=== PATIENT | male | born 2005 | race Caucasian/White ===

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

== ENCOUNTER 2025-08-20 15:51 | Emergency (ER) | payer OTHER, SELFPAY ==
[2025-08-20 16:01] VITALS: BP 123/61; PULSE 105; RESP 16; TEMP 37.9; O2SAT 97
[2025-08-20] MEDS: ONDANSETRON 4 MG ODT SL (16:23)
[2025-08-20] MEDS: ACETAMINOPHEN 325 MG TABLET 975 MG PO (16:23)
[2025-08-20] MEDS: NEOMY/POLYM B/HC OTIC 10 ML 4 DROPS EAR-LEFT (16:25)
[2025-08-20] MEDS: AMOXICILLIN/CLAV 875/125 MG 1 TAB PO (16:25)
[2025-08-20 16:38] VITALS: BMI 31.5
[2025-08-20 16:39] VITALS: BP 128/67; PULSE 96; RESP 18; TEMP 37.3; O2SAT 97
--- NOTE | 2025-08-20 16:47 | ED.EAR ---
HPI - Ear Problem <MT Lassiter Last Filed: 08/20/25 18:29> General Chief complaint: Ear Stated complaint: Severe LT ear pain; jaw pain Time Seen by Provider: 08/20/25 16:02 Source: patient Mode of arrival: Ambulatory History of Present Illness HPI Narrative: Mr. Beatriz Swanson is a pleasant 20-year-old male with no reported past medical history who presents to the emergency department with his family for left ear pain and jaw pain x3 days. Patient says he has pain primarily in the left ear but it is also spreading to the left jaw. He previously did not have any fevers or chills but in the emergency department as temperature is slightly elevated 100.2. He denies significant cough, sore throat, right ear pain or sinus congestion. He has mild nausea, no vomiting or diarrhea. Denies recent swimming but he does submerge his head under water in the shower. No reported history of ear infections. Related Data Previous Rx's ?Medication ?Instructions ?Recorded hydrocortisone 2.5 % topical 1 applic topical BID PRN itching 11/11/20 ointment #28.35 grams albuterol sulfate 90 mcg/actuation 2 puff inhalation Q6H PRN 09/04/24 aerosol inhaler shortness of breath or wheezing #8.5 grams azithromycin 500 mg tablet See Rx Instructions PO .COMPLEX #3 09/04/24 (Zithromax TRI-ANTONIA) tabs amoxicillin 875 mg-potassium 1 tab PO Q12H 7 days #14 tabs 08/20/25 clavulanate 125 mg tablet [id number] 3.5 4 drp EAR-LEFT QID 10 days #10 mL 08/20/25 mg-10,000 unit/mL-1 % ear drops,susp ondansetron 4 mg disintegrating 4 mg PO Q8H PRN nausea and 08/20/25 tablet vomiting #10 tabs Allergies Allergy/AdvReac Type Severity Reaction Status Date / Time No Known Drug Allergies Allergy Verified 08/20/25 16:01 Review of Systems <Triny Coon PA-C - Last Filed: 08/20/25 18:29> Review of Systems ROS Unobtainable: All systems reviewed & are unremarkable except as noted in HPI and below Patient History <Triny Coon PA-C - Last Filed: 08/20/25 18:29> Medical History Chronic pruritus Keratosis pilaris Social History Smoking Status: Never smoker Smoking Status: Never smoker Exam <Triny Coon PA-C - Last Filed: 08/20/25 18:29> Narrative Exam Narrative: GENERAL: 20 year old patient appears stated age. Well-developed patient, in no acute distress. HEAD: Atraumatic. Normocephalic. EYES: PERRL. Extraocular motions intact. No scleral icterus. No injection or drainage. ENT: Left ear canal erythematous and edematous, TM is also erythematous and bulging without perforation. Right ear canal is clear with pearly dewitt TM. No mastoid tenderness or erythema bilaterally. Nose without bleeding, purulent drainage. Throat without erythema, tonsillar hypertrophy or exudate, uvula is midline. [place] teeth do appear to be coming in on both sides of the lower jaw, no fluctuance, dental tenderness or drainage. No oropharyngeal swelling. Airway patent. NECK: Trachea midline. Cervical ROM intact. Mild left-sided cervical lymphadenopathy palpable. CARDIOVASCULAR: Regular rate and rhythm. RESPIRATORY: ?Nonlabored respirations. ?Speaking in clear, full sentences. ?Clear to auscultation. Breath sounds equal bilaterally. No wheezes, rales, or rhonchi. ? NEURO: AOx3. ?Clear speech. ?Moves all 4 extremities appropriately. SKIN: No rash or erythema of visible areas. Initial Vital Signs Initial Vital Signs: Vital Signs Temperature 100.2 F H 08/20/25 16:01 Pulse Rate 105 H 08/20/25 16:01 Respiratory Rate 16 08/20/25 16:01 Blood Pressure 123/61 08/20/25 16:01 Pulse Oximetry 97 08/20/25 16:01 Oxygen Delivery Method Room Air 08/20/25 16:01 <Marlena Haywood MD - Last Filed: 08/20/25 19:10> Initial Vital Signs Initial Vital Signs: Vital Signs Temperature 100.2 F H 08/20/25 16:01 Pulse Rate 105 H 08/20/25 16:01 Respiratory Rate 16 08/20/25 16:01 Blood Pressure 123/61 08/20/25 16:01 Pulse Oximetry 97 08/20/25 16:01 Oxygen Delivery Method Room Air 08/20/25 16:01 Course <Triny Coon PA-C - Last Filed: 08/20/25 18:29> Orders Ordered: Discontinued Medications Acetaminophen (Acetaminophen 325 Mg Tablet) 975 mg PO NOW ONE Stop: 08/20/25 16:09 Last Admin: 08/20/25 16:23 Dose: 975 mg Documented By: JULIA Amoxicillin/Clavulanate Potassium (Amoxicillin/Clav 875/125 Mg) 1 tab PO NOW ONE Stop: 08/20/25 16:09 Last Admin: 08/20/25 16:25 Dose: 1 tab Documented By: JULIA Neomycin/Polymyxin/Hydrocortisone (Neomy/Polym B/Hc Otic 10 Ml) 4 drops EAR-LEFT NOW ONE Stop: 08/20/25 16:14 Last Admin: 08/20/25 16:25 Dose: 4 drops Documented By: JULIA Ondansetron HCl (Ondansetron 4 Mg Odt) 4 mg SL NOW ONE Stop: 08/20/25 16:09 Last Admin: 08/20/25 16:23 Dose: 4 mg Documented By: JULIA Vital Signs Vital signs: Vital Signs - 8 hr 08/20/25 16:01 08/20/25 16:39 Temperature 100.2 F H 99.2 F Pulse Rate 105 H 96 H Respiratory Rate 16 18 Blood Pressure 123/61 128/67 Pulse Oximetry 97 97 Oxygen Delivery Method Room Air <Marlena Haywood MD - Last Filed: 08/20/25 19:10> Orders Ordered: Discontinued Medications Acetaminophen (Acetaminophen 325 Mg Tablet) 975 mg PO NOW ONE Stop: 08/20/25 16:09 Last Admin: 08/20/25 16:23 Dose: 975 mg Documented By: JULIA Amoxicillin/Clavulanate Potassium (Amoxicillin/Clav 875/125 Mg) 1 tab PO NOW ONE Stop: 08/20/25 16:09 Last Admin: 08/20/25 16:25 Dose: 1 tab Documented By: JULIA Neomycin/Polymyxin/Hydrocortisone (Neomy/Polym B/Hc Otic 10 Ml) 4 drops EAR-LEFT NOW ONE Stop: 08/20/25 16:14 Last Admin: 08/20/25 16:25 Dose: 4 drops Documented By: JULIA Ondansetron HCl (Ondansetron 4 Mg Odt) 4 mg SL NOW ONE Stop: 08/20/25 16:09 Last Admin: 08/20/25 16:23 Dose: 4 mg Documented By: JULIA Vital Signs Vital signs: Vital Signs - 8 hr 08/20/25 16:01 08/20/25 16:39 Temperature 100.2 F H 99.2 F Pulse Rate 105 H 96 H Respiratory Rate 16 18 Blood Pressure 123/61 128/67 Pulse Oximetry 97 97 Oxygen Delivery Method Room Air Medical Decision Making <Triny Coon PA-C - Last Filed: 08/20/25 18:29> Medical Records Medical records reviewed: Yes I reviewed the patient's medical records. [facility] Narrative Medical decision making narrative: 20-year-old male with no reported past medical history who presents to the emergency department with his family for left ear pain and jaw pain x3 days. Differential diagnosis includes but is not limited to acute otitis media, acute otitis externa, dental infections sinusitis pharyngitis, etc. On exam the patient is in no acute distress, nontoxic appearing, initial temperature was slightly elevated. Physical exam is consistent with left-sided acute otitis media and acute otitis externa. He has no signs of pharyngitis or dental infection on exam. We will treat with Tylenol, Augmentin, we will premedicate with Zofran. He was also treated with Cortisporin ear drops in the ED. Patient was prescribed Augmentin, Zofran, Cortisporin ear drops to pharmacy of choice. Discussed proper use of prescriptions in addition to [id number] ibuprofen and Tylenol, avoiding putting anything into the left ear such as water. Discussed PCP follow up in ER return precautions. Patient verbalized understanding of all information is agreeable with the plan, vital signs improving, stable for discharge home with his family. Discharge Plan Departure Patient Disposition: Home Clinical Impression: Acute left otitis media Otitis externa Qualifiers: Otitis externa type: unspecified type Chronicity: acute Laterality: left Qualified Code(s): H60.502 - Unspecified acute noninfective otitis externa, left ear Instructions: How to Instill Ear Drops, DI for Otitis Externa, DI for Otitis Media (Middle Ear Infection)-Child Activity Restrictions/Additional Instructions: Dear Mr. Beatriz Swanson, Thank you for coming to the emergency department. Today you were evaluated for left ear/jaw pain. Your physical exam revealed an infection of both the inner and outer left ear. Please complete the full course of oral antibiotics and ear drops. Please take Ibuprofen (Motrin/Advil) or Acetaminophen (Tylenol) for pain. These are available over the counter. You may take Ibuprofen 600 mg every 8 hours with food for pain. You may also take Acetaminophen 650 mg every 4-6 hours for pain. Do not exceed 3000 mg of Tylenol a day as this can cause liver damage. Do not drink alcohol with either of these medications. Please return to the emergency department immediately if you develop any concerns, redness spreading on the face, persistent fevers, swelling of the throat or face or any other concerns. Please follow up with your primary care doctor within the next 2-3 days for ER follow-up. (If you do not have a PCP you can call [phone]. ?to schedule an appointment with an [facility] Primary Care Provider) IF YOU DEVELOP ANY NEW OR WORSENING SYMPTOMS, RETURN TO THE ER! Please read the attached instructions, they highlight more specific treatments and interventions for you at home. Thank you for letting me participate in your care, Triny Coon PA-C Prescriptions: New amoxicillin-pot clavulanate 875-125 mg tablet 1 tab PO Q12H 7 Days Qty: 14 0RF [id number]-[id number] 3.5-10,000-1 mg/mL-unit/mL-% drops,suspension 4 drp EAR-LEFT QID 10 Days Qty: 10 0RF ondansetron 4 mg tablet,disintegrating 4 mg PO Q8H PRN (Reason: nausea and vomiting) Qty: 10 0RF No Action hydrocortisone 2.5 % ointment 1 applic topical BID PRN (Reason: itching) Qty: 28.35 0RF Rx Instructions: Apply to affected area(s) twice daily as needed for itching azithromycin [Zithromax TRI-ANTONIA] 500 mg tablet See Rx Instructions PO .COMPLEX Qty: 3 0RF Rx Instructions: For 500 mg dose pack: take 500 mg once daily for 3 days albuterol sulfate 90 mcg/actuation HFA aerosol inhaler 2 puff inhalation Q6H PRN (Reason: shortness of breath or wheezing) Qty: 8.5 0RF Referrals: Miscellaneous,Doctor, MD [Primary Care Provider, Medical] Stand Alone Forms: Patient Portal/API ED Sign-out <Marlena Haywood MD - Last Filed: 08/20/25 19:10> Cosign ED Attending Cosignature Attestation: Reviewed PA note. While I was not directly involved in patient care, I was available at that time. Agree with PA assessment and plan.
== END 2025-08-20 16:52 | disposition home or self-care (01) ==
PROVIDERS: Emergency Provider Physician Assistant
DX: H66.92 Otitis media, unspecified, left ear (principal); H60.502 Unspecified acute noninfective otitis externa, left ear
CPT/HCPCS: 99283